=== PATIENT | female | born 1970 | race Caucasian/White ===

== ENCOUNTER 2016-09-02 07:44 | Emergency (ER) | payer BC, OTHER ==
[~2016-09-02] VITALS: Ht 157.5 cm; Wt 99.8 kg
[2016-09-02] MEDS ORDERED: FOLI0.8C PO (08:21)
[2016-09-02] MEDS ORDERED: vitamin b12 inj IM (08:21)
[2016-09-02] MEDS ORDERED: METH2.5T PO (08:21)
[2016-09-02] MEDS ORDERED: FLUO40CA12 PO (08:21)
[2016-09-02] MEDS ORDERED: METF500T4 PO (08:21)
[2016-09-02] MEDS ORDERED: CHOL500049 PO (08:21)
[2016-09-02] MEDS ORDERED: Embrel IM (08:21)
[2016-09-02] MEDS ORDERED: CELE100C PO (08:23)
--- NOTE | 2016-09-02 08:37 | Diagnostic Imaging Report ---
INDICATION: Cough and congestion. TECHNIQUE: PA and lateral views of the chest were obtained. FINDINGS: The heart size and pulmonary vascularity are within normal limits. The lungs are clear bilaterally. IMPRESSION: Unremarkable chest. Dictated by: Dictated on workstation # [id number]
--- NOTE | 2016-09-02 09:43 | ED General ---
General Chief Complaint: Cough/Cold/Flu Symptoms Stated Complaint: POSS PNEUMONIA Nursing Triage Note: c/o cough/congestion since Friday. Reports having to sleep in upright position. No respiratory distress noted. Nursing Sepsis Screen: No Definite Risk Source of Information: Patient Exam Limitations: No Limitations History of Present Illness Time Seen by Provider: 07:45 Initial Comments This 46-year-old woman presents to the emergency room complaining of cough and congestion 1 week. Cough has worsened and has become hard and violent. She has developed dizziness and difficulty breathing. She has chest discomfort with inspiration as well. She is not febrile. She is immunocompromised as a result of treatment of psoriatic arthritis and lupus. She has had some wheezing and uses an inhaler at home. She also completed a course of Advair therapy. Allergies and Home Medications Allergies Uncoded Allergies: PCN (Allergy, Unknown, 09/28/12) Home Medications IM WEEK (Reported) IM twice per month (Reported) Azithromycin 250 Mg Tablet #6 250 MG PO UD TAKE 2 TABLETS ON DAY ONE THEN TAKE 1 TABLET DAILY FOR FOUR MORE DAYS Prescribed by: YOVANNY HENRIQUEZ on 09/02/16 1015 Benzonatate 200 Mg Capsule #20 200 MG PO TID PRN PRN COUGH Prescribed by: YOVANNY HENRIQUEZ on 09/02/16 1015 Celecoxib 100 Mg Capsule 100 MG PO BID (Reported) Cholecalciferol (Vitamin D3) 50,000 Unit Capsule 50,000 UNIT PO WEEK (Reported) Fluoxetine HCl 40 Mg Capsule 40 MG PO DAILY (Reported) Folic Acid 0.8 Mg Capsule 1.6 MG PO DAILY (Reported) Metformin HCl 500 Mg Tablet 500 MG PO BID (Reported) Methotrexate Sodium 2.5 Mg Tablet 15 MG PO WEEK (Reported) Oxycodone HCl/Acetaminophen 1 Each Tablet #10 1 EACH PO Q4H PRN PRN PAIN Prescribed by: YOVANNY HENRIQUEZ on 09/02/16 1015 Prednisone 20 Mg Tab #6 20 MG PO BID Prescribed by: YOVANNY HENRIQUEZ on 09/02/16 1015 Constitutional: no symptoms reported EENTM: see HPI Respiratory: no symptoms reported Cardiovascular: no symptoms reported Gastrointestinal: no symptoms reported Genitourinary: no symptoms reported : No Musculoskeletal: no symptoms reported Skin: no symptoms reported Psychiatric/Neurological: No Symptoms Reported Hematologic/Lymphatic: No Symptoms Reported Immunological/Allergic: see HPI Past Ojibprq-Ppdgue-Hengad Hx Patient Social History Recent Foreign Travel: No Contact w/Someone Who Travel: No Recent Infectious Disease Expo: No Recent Hopitalizations: No Immunizations Up To Date Date of Influenza Vaccine: Jun 25, 2012 Surgeries HX Surgeries: Yes (fx left wrist) Surgeries: Gallbladder, Hysterectomy Respiratory Hx Respiratory Disorders: No Cardiovascular Hx Cardiac Disorders: No Neurological Hx Neurological Disorders: No Genitourinary Hx Genitourinary Disorders: No Gastrointestinal Hx Gastrointestinal Disorders: No Musculoskeletal Hx Musculoskeletal Disorders: Yes (psoratic arthritis) Endocrine Hx Endocrine Disorders: Yes Endocrine Disorders: Diabetes, Non-Insulin dep, Lupus HEENT HX ENT Disorders: No Cancer Hx Cancer: No Psychosocial Hx Psychiatric Problems: Yes Behavioral Health Disorders: Depression Integumentary HX Skin/Integumentary Disorder: Yes Skin/Integumentary Disorders: Psoriasis Blood Transfusions Hx Blood Disorders: No Physical Exam Vital Signs Vital Sign - Last 12Hours 09/02/16 08:03 Temp 96.4 Pulse 84 Resp 18 B/P 144/94 Pulse Ox 98 O2 Delivery Room Air Capillary Refill : Less Than 3 Seconds General Appearance: No Apparent Distress WD/WN HEENT: PERRL/EOMI TMs Normal Normal ENT Inspection Pharynx Normal Neck: Normal Inspection Respiratory: Lungs Clear Normal Breath Sounds No Accessory Muscle Use No Respiratory Distress Other (Forced expiration induces cough) Cardiovascular: Regular Rate, Rhythm No Edema Normal Peripheral Pulses Gastrointestinal: Non Tender Soft Neurologic/Psychiatric: Alert Oriented x3 No Motor/Sensory Deficits Normal Mood/Affect neon tube pumper II-XII Norm as Tested Skin: Normal Color Warm/Dry Progress/Results/Core Measures Results/Orders Micro Results My Orders Vital Signs/I&O Blood Pressure Mean: 111 Progress Note : Progress Note No pneumonia was identified on chest x-ray. However, because of her immunocompromised state with worsening and prolonged symptoms, antibiotic therapy was prescribed. Diagnostic Imaging Diagonstic Imaging: Xray Plain Films/CT/US/NM/MRI: chest Comments Chest x-ray viewed by me and report reviewed. See report below: NAME: JOEY PARHAM [facility] REC#: [id number] PT STATUS: REG ER : 1970 PHYSICIAN: YOVANNY CANDELARIA MD ADMIT DATE: 09/02/16/ER Signed Date of Exam:09/02/16 CHEST PA/LAT (2 VIEW) INDICATION: Cough and congestion. TECHNIQUE: PA and lateral views of the chest were obtained. FINDINGS: The heart size and pulmonary vascularity are within normal limits. The lungs are clear bilaterally. IMPRESSION: Unremarkable chest. Dictated by: Dictated on workstation # [id number] Dict: 09/02/16 0834 Trans: 09/02/1622 [id number] Interpreted by: ABEL CHAVEZ MD Electronically signed by: ABEL CHAVEZ MD 09/02/16 0924 Departure Impression Impression: Primary Impression: Upper respiratory infection Qualified Code: J06.9 - Acute upper respiratory infection, unspecified Additional Impressions: Chest wall pain Immunocompromised state Disposition: HOME, SELF-CARE Condition: Stable Departure-Patient Inst. Decision time for Depature: 10:00 Referrals: WES MCCOY DO (PCP/Family) Primary Care Physician Patient Instructions: Viral Upper Respiratory Infection, Adult (DC) Add. Discharge Instructions: Complete your medications as prescribed. Follow-up with your primary care provider the end of this week. Return to care earlier if symptoms worsen. All discharge instructions reviewed with patient and/or family. Voiced understanding. Scripts Oxycodone HCl/Acetaminophen (Percocet 5-325 mg Tablet)1 Each Tablet1 Each PO Q4H PRN PAIN #10 TAB Prov:YOVANNY CANDELARIA MD 09/02/16 Benzonatate 200 Mg [id number] Mg PO TID PRN COUGH #20 CAP Prov:YOVANNY CANDELARIA MD 09/02/16 Prednisone 20 Mg Tab20 Mg PO BID #6 TAB Prov:YOVANNY CANDELARIA MD 09/02/16 Azithromycin 250 Mg [id number] Mg PO UD #6 TAB TAKE 2 TABLETS ON DAY ONE THEN TAKE 1 TABLET DAILY FOR FOUR MORE DAYS Prov:YOVANNY CANDELARIA MD 09/02/16 YOVANNY CANDELARIA MD Sep 02, 2016 09:43
[2016-09-02] MEDS ORDERED: OXYC-197 PO (10:15)
[2016-09-02] MEDS ORDERED: BENZ200C51 PO (10:15)
[2016-09-02] MEDS ORDERED: AZIT250T5 PO (10:15)
[2016-09-02] MEDS ORDERED: PRD20T PO (10:15)
[2016-09-02 10:24] VITALS: BP 132/92
== END 2016-09-02 10:24 | disposition home or self-care (01) ==
LOC: EDUNIT# 07:44 → ER 07:46
DX: J06.9 Acute upper respiratory infection, unspecified (principal); R07.89 Other chest pain; L93.0 Discoid lupus erythematosus; D89.9 Disorder involving the immune mechanism, unspecified; E11.9 Type 2 diabetes mellitus without complications; Z79.84 Long term (current) use of oral hypoglycemic drugs; Z79.899 Other long term (current) drug therapy
CPT/HCPCS: 71020; 87804

== ENCOUNTER → 2018-01-26 | Outpatient (CLI) | payer OTHER ==
[~2018-01-26] MED LIST: AZIT250T12 PO; BENZ200C51 PO; CELE100C PO; CHOL500049 PO; Embrel IM; FLUO40CA12 PO; FOLI0.8C PO; METF500T5 PO; METH2.5T PO; OXYC-197 PO; PRD20T PO; vitamin b12 inj IM
== END ==
LOC: CARD 15:02
PROVIDERS: ATTEND Nurse Practitioner Family
DX: R00.0 Tachycardia, unspecified (principal); R06.00 Dyspnea, unspecified
CPT/HCPCS: 93005

== ENCOUNTER → 2018-02-02 | Outpatient (CLI) | payer OTHER | LOC: CARD 10:49 | PROVIDERS: ATTEND Family Medicine | DX: R07.9 Chest pain, unspecified (principal); I07.1 Rheumatic tricuspid insufficiency | CPT/HCPCS: 93306 ==

== ENCOUNTER → 2018-02-02 | Outpatient (CLI) | payer OTHER | LOC: CARD 09:50 | PROVIDERS: ATTEND Internal Medicine Cardiovascular Disease | DX: R07.89 Other chest pain (principal); R00.2 Palpitations; R06.02 Shortness of breath; R00.0 Tachycardia, unspecified; E66.9 Obesity, unspecified | CPT/HCPCS: 93017; 93225; 93226 ==

== ENCOUNTER → 2018-06-19 | Outpatient (CLI) | payer OTHER ==
[~2018-06-19] MED LIST changes: +METF-397 PO; -METF500T5 PO; -METH2.5T PO; +MTX2.5T PO; -OXYC-197 PO; +OXYC1TAB87 PO
--- NOTE | 2018-06-19 08:34 | Diagnostic Imaging Report ---
Indication: Routine screening. Comparison is made with prior mammogram from 09/02/2012. 2-D and 3-D bilateral screening mammography was performed with CAD. Both breasts are heterogeneously dense, limiting the sensitivity of mammography. Intraparenchymal lymph node in the outer left breast appear stable. No new mass or malignant-appearing microcalcifications are seen. A axillae are unremarkable. Impression: BI-RADS category 2 No mammographic features suspicious for malignancy are identified. ACR BI-RADS Category 2: Benign findings. Result letter will be mailed to the patient. Note: At least 10% of breast cancer is not imaged by mammography. Dictated by: Dictated on workstation # [id number]
== END ==
LOC: RAD 07:05
PROVIDERS: ATTEND Family Medicine
DX: Z12.31 Encounter for screening mammogram for malignant neoplasm of breast (principal)
CPT/HCPCS: 77067

== ENCOUNTER → 2020-03-30 | Outpatient (CLI) | payer OTHER ==
[2020-03-30 10:43] LABS: BASOPHILS % (AUTO) 0 % (0-10); EOSINOPHILS # (AUTO) 0.2 10^3/uL (0.0-0.3); EOSINOPHILS % (AUTO) 2 % (0-10); HEMATOCRIT 39 % (35-52); HEMOGLOBIN 12.7 G/DL (11.5-16.0); LYMPHOCYTES # (AUTO) 2.3 X 10^3 (1.0-4.0); LYMPHOCYTES % (AUTO) 28 % (12-44); MEAN CORPUSCULAR HEMOGLOBIN 28 PG (25-34); MEAN CORPUSCULAR HGB CONC 33 G/DL (32-36); MEAN CORPUSCULAR VOLUME 85 FL (80-99); MEAN PLATELET VOLUME 9.4 FL (7.4-10.4); MONOCYTES # (AUTO) 0.8 X 10^3 (0.0-1.0); MONOCYTES % (AUTO) 10 % (0-12); NEUTROPHILS % (AUTO) 60 % (42-75); PLATELET COUNT 367 10^3/uL (130-400); RED CELL DISTRIBUTION WIDTH 13.4 % (10.0-14.5); WHITE BLOOD COUNT 8.3 10^3/uL (4.3-11.0)
--- NOTE | 2020-03-30 10:56 | Diagnostic Imaging Report ---
EXAMINATION: PA and lateral chest at 1034 AM INDICATION: Cough and dyspnea There is shallow inspiration when compared to the prior exam of 09/02/2016. Allowing for this technical factor, the heart size is within normal limits. There are few carotid bronchovascular markings in both infrahilar regions. I suspect that these are related to the shallow degree of inspiration as well. There is no evidence for pneumonia, failure or pleural effusion. The mediastinum is not widened. The osseous structures are intact. IMPRESSION: Allowing for the shallow degree of inspiration, there is no evidence for an acute cardiopulmonary abnormality. Dictated by: Dictated on workstation # [id number]
== END ==
LOC: RAD 10:12
PROVIDERS: ATTEND Family Medicine
DX: R05 Cough (principal); R06.00 Dyspnea, unspecified; Z20.828 Contact with and (suspected) exposure to other viral communicable diseases
CPT/HCPCS: 36415; 71046; 85025; 86738

== ENCOUNTER → 2021-06-14 | Outpatient (CLI) | payer BC ==
[~2021-06-14] VITALS: Ht 154.9 cm; Wt 115.8 kg
[~2021-06-14] MED LIST changes: +GBPN600T PO; +METO50TA7 PO; +PANT40TA52 PO; +TIZA2CAP9 PO; +TOFA10TA PO
== END | disposition home or self-care (01) ==
LOC: PREOP 09:03
PROVIDERS: ATTEND Internal Medicine
DX: Z01.818 Encounter for other preprocedural examination (principal)

== ENCOUNTER 2021-06-15 08:48 | Day surgery (SDC) | payer BC ==
[~2021-06-15] VITALS: Ht 155 cm; Wt 115.8 kg
--- NOTE | 2021-06-15 07:04 | HISTORY AND PHYSICAL ---
DATE OF SERVICE: COLONOSCOPY HISTORY AND PHYSICAL HISTORY: The patient is a 51-year-old white female referred by Dr. Fabian for diagnostic panendoscopy due to recent significant drop in her hemoglobin with secondary anemia, epigastric pain for the last several weeks in individual who has psoriatic arthritis and is on Celebrex on a regular basis. 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 She denies melena or bright red blood per rectum. Notes within 10 to 15 minutes of eating, she will have burning epigastric discomfort. She has not reported dysphagia. She has recently started on pantoprazole, which has not helped months in regard to symptoms now on the medication for almost a week. She denies any nocturnal symptoms. She is not having any nocturnal stool, but does report a lot of postprandial abdominal pain/diarrhea within minutes going anywhere from 4 to 8 times per day. She has had episodes of this in the past, but it has been several weeks that the diarrhea has been worse than usual. She denies any associated abdominal cramping. FAMILY HISTORY: Pertinent for what sounds like a polyposis syndrome in her father and her sister. It is not clear as to whether or not her father actually had colon cancer or not. Sister who has had multiple colonoscopies, multiple polyp removals. The patient's last colonoscopy was in 09/[address] Werner and revealed no evidence for neoplasia, inflammatory change or diverticular disease was reportedly normal. PAST MEDICAL HISTORY: Significant for obstructive sleep apnea, obesity, BMI 40 to 45, hypertension and psoriatic arthritis. MEDICATIONS: Include recent addition of pantoprazole 40 mg daily, doxepin 25 mg at bedtime, Percocet 5/325 p.r.n., tizanidine 2 mg at bedtime p.r.n., Xeljanz p.o. daily, fluoxetine 20 mg daily, vitamin D 50,000 units weekly and 5000 units daily. Celebrex 200 mg it had been twice a day and she has recently cut down to once a day, gabapentin 600 mg at bedtime, and metoprolol 50 mg daily. 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 REVIEW OF SYSTEMS: CONSTITUTIONAL: The patient denies night sweats, chills, fever, change in weight. GASTROINTESTINAL: As noted in the HPI. PULMONARY: Denies cough, wheezing or shortness of breath. CARDIOVASCULAR: Denies chest pain, orthopnea, PND or pedal edema. PHYSICAL EXAMINATION: GENERAL: Reveals a pleasant white female, appears to be in no acute distress. VITAL SIGNS: Weight 257 pounds. Initial blood pressure 150/110, on repeated 140/94. HEENT: Unremarkable. CHEST: Clear. CARDIOVASCULAR: Reveals a regular rate and rhythm without murmur, S3 or S4. ABDOMEN: Soft, supple without mass, organomegaly or tenderness except over the epigastrium where there is discomfort to palpation without rebound or guarding. EXTREMITIES: Reveal no cyanosis, clubbing or edema. ASSESSMENT AND PLAN: The patient is being set up for panendoscopy for further investigation of epigastric pain and anemia, likely due to GI bleed. Colonoscopy for the same reason as well as diarrhea. We will need biopsies for microscopic colitis. The patient is being set up for colonoscopy on 06/15/2021. Prep instructions with Suprep kit were given and questions were answered. Electronic medical record was reviewed. Job ID: [id number] DocumentID: [id number] Dictated Date: 06/13/2021 15:55:11 Pressing Department Supervisor Date: 06/13/2021 16:46:43 Dictated By: FAVIOLA SCOTT MD
[2021-06-15] MEDS ORDERED: LACTATED RINGERS 1,000 ML IV ONE (08:58)
[2021-06-15] MEDS ORDERED: LACTATED RINGERS 1,000 ML IV STA (08:58)
[2021-06-15] MEDS ORDERED: LIDOCAINE JELLY 2% 6 ML SYRINGE MM PRN (09:00)
[2021-06-15] MEDS ORDERED: HURRICAINE EXT TUBE (BENZOCAINE) XX PRN (09:00)
[2021-06-15 09:30] VITALS: BP 135/76
--- NOTE | 2021-06-15 09:46 | Pre-Op Note & Conscious Sedat ---
Pre-Operative Progress Note H&P Reviewed The H&P was reviewed, patient examined and no changes noted. Date H&P Reviewed: Jun 15, 2021 Time H&P Reviewed: 09:46 Conscious Sedation Pre-Proced ASA Score 2 For ASA 3 and 4: Consider anesthesia and medical clearance. Also, for patients with a history of failed moderate sedation consider anesthesia. Airway Lungs Heart ASA score ASA 1: a normal healthy patient ASA 2: a patient with a mild systemic disease (mid diabetes, controlled hypertension, obesity ASA 3: a patient with a severe systemic disease that limits activity (angina, COPD, prior Myocardial infarction) ASA 4: a patient with an incapacitating disease that is a constant threat to life (CHF, renal failure) ASA 5: a moribund patient not expected to survive 24 hrs. (ruptured aneurysm) ASA 6: a declared brain- patient whose organs are being harvested. For emergent operations, add the letter E after the classification Mallampati Classification Grade 3 Sedation Plan Analgesia, Amnesia, Plan communicated to team members, Discussed options with patient/fam, Discussed risks with patient/fam The patient is an appropriate candidate to undergo the planned procedure, sedation, and anesthesia. The patient immediately re-assessed prior to indication. FAVIOLA SCOTT MD Jun 15, 2021 09:46
[2021-06-15] MEDS ORDERED: MIDAZOLAM 2 MG/2 ML (VERSED) VIAL ONE (10:32)
[2021-06-15] MEDS ORDERED: PROPOFOL INJECTION 50 ML IV ONE ×2 (10:32→10:58)
[2021-06-15 11:16] VITALS: BP 126/78
[2021-06-15 11:21] VITALS: BP 126/79
[2021-06-15 11:25] VITALS: BP 158/74
[2021-06-15 11:55] VITALS: BP 133/88
[2021-06-15 12:11] VITALS: BP 133/88
--- NOTE | 2021-06-15 13:36 | Anesthesia-General Post-Op ---
MAC Patient Condition Mental Status/LOC: Same as Preop Cardiovascular: Satisfactory Nausea/Vomiting: Absent Respiratory: Satisfactory Pain: Controlled Complications: Absent Post Op Complications Complications None Follow Up Care/Instructions Patient Instructions None needed. Anesthesiology Discharge Order Discharge Order Patient is doing well, no complaints, stable vital signs, no apparent adverse anesthesia problems. No complications reported per nursing. ESPERANZA PORTER CRNA Jun 15, 2021 13:36
--- NOTE | 2021-06-15 19:12 | OPERATIVE REPORT ---
DATE OF SERVICE: PANENDOSCOPY SUMMARY DESCRIPTION OF PROCEDURE: Panendoscopy was performed for iron deficiency anemia, epigastric pain and screening colonoscopy. The endoscope was inserted into the oral cavity and under direct visualization, esophagus was intubated. Endoscope was passed down the esophagus through stomach and second portion of the duodenum. Careful inspection was made as the endoscope was withdrawn. FINDINGS: The posterior pharynx, epiglottis, arytenoid aperture and true and false vocal folds were unremarkable to visual inspection. Proximal and mid esophagus were unremarkable. There was some mild erythema noted at the Z-line without evidence for ulceration or Bowser's change. Evidence for hiatal hernia was not noted. The cardia and fundus of the stomach were unremarkable. There is some mild linear antral erythema noted. A biopsy was obtained and submitted for histopathology and H. pylori evaluation. The pylorus, pyloric channel, duodenal bulb and second portion of duodenum were unremarkable including normal appearing villous architecture on gross inspection. ASSESSMENT: Minimal GE junction erythema is noted without evidence for erosive esophagitis. As the patient has noted some improvement in epigastric symptoms on b.i.d. proton pump inhibitor therapy for now, we will have her continue. Findings compatible with mild antral gastritis were noted. A biopsy is pending for H. pylori and histopathology evaluation. Small bowel was unremarkable on visual inspection with normal appearing villous architecture. We then proceeded with a screening colonoscopy. The patient prior to undergoing colonoscopy, underwent digital rectal evaluation. Anal sphincter tone was normal. Perianal reflex intact. No abnormalities were noted on digital inspection of anal canal or distal rectal vault. The colonoscope was then inserted into the rectum and under direct visualization advanced to the cecum. The cecum was identified by identification of ileocecal valve and cecal strap. Photographic documentation was obtained. Quality of prep was good. The rectum was unremarkable on gross inspection. A biopsy was obtained to evaluate for underlying microscopic colitis. A 3 mm sessile diminutive polyp was noted in the distal sigmoid colon. It was biopsied and ablated and submitted for histopathology with no subsequent blood loss. The remainder of the sigmoid colon was unremarkable. No evidence for diverticular disease was noted. The descending colon, transverse colon, ascending colon, and cecum were unremarkable. A biopsy from the ascending colon was obtained for evaluation of microscopic colitis. ASSESSMENT: One diminutive polyp was removed from the distal sigmoid colon with otherwise unremarkable colonoscopy. I did take the liberty of having the patient return to see me next when we will discuss histopathology report and if there is evidence for microscopic colitis, which the patient believes she has had in the past. We will discuss treatment options for this. If not, we will discuss treatment for IBS for possible small bowel bacterial overgrowth with early referral back to Dr. Fabian. I thank you for the referral of this pleasant lady. Job ID: [id number] DocumentID: [id number] Dictated Date: 06/15/2021 13:28:15 Supplier Diversity Director Date: 06/15/2021 19:11:59 Dictated By: FAVIOLA SCOTT MD MTDD
== END 2021-06-15 12:12 ==
LOC: ENDO 08:48
PROVIDERS: ATTEND Internal Medicine
DX: Z12.11 Encounter for screening for malignant neoplasm of colon (principal); D50.9 Iron deficiency anemia, unspecified; K29.50 Unspecified chronic gastritis without bleeding; K21.00 Gastro-esophageal reflux disease with esophagitis, without bleeding; K22.89 Other specified disease of esophagus; K44.9 Diaphragmatic hernia without obstruction or gangrene; K31.89 Other diseases of stomach and duodenum; K63.5 Polyp of colon; I10 Essential (primary) hypertension; G47.33 Obstructive sleep apnea (adult) (pediatric); E66.9 Obesity, unspecified; L40.50 Arthropathic psoriasis, unspecified; F32.A Depression, unspecified; Z79.899 Other long term (current) drug therapy; Z68.42 Body mass index [BMI] 45.0-49.9, adult; Z83.71 Family history of colonic polyps

== ENCOUNTER → 2021-06-20 | Outpatient (CLI) | payer BC | LOC: LABNPT 08:00 | PROVIDERS: ATTEND Family Medicine | DX: Z20.822 Contact with and (suspected) exposure to COVID-19 (principal) | CPT/HCPCS: 87635 ==

== ENCOUNTER → 2021-06-22 | Outpatient (CLI) | payer BC | LOC: SLEEP 20:19 | PROVIDERS: ATTEND Family Medicine | DX: G47.33 Obstructive sleep apnea (adult) (pediatric) (principal); G47.10 Hypersomnia, unspecified; G47.00 Insomnia, unspecified; I10 Essential (primary) hypertension; G47.36 Sleep related hypoventilation in conditions classified elsewhere | CPT/HCPCS: 87635; 95810 ==